=== PATIENT | male | born 1980 | race Hispanic/Latino ===

== ENCOUNTER → 2017-01-31 | Outpatient (CLI) | payer OTHER ==
[~2017-01-31] MED LIST: CEFD300C3 PO; HCT25T PO; HCTZ12.5T PO; HYDR-3454 PO; IBP600T1 PO; LISI1TAB10 PO; LISI20TA PO; LOVA20TA2 PO; LOVA40TA2 PO; LSNP20T PO; MMT17NA NSEACH; PRAV40TA2 PO
--- NOTE | 2017-01-31 14:07 | Diagnostic Imaging Report ---
INDICATION: Dyspnea upon exertion. PA and lateral views of the chest are obtained. Comparison is made to study of 09/13/2015. FINDINGS: Heart size and pulmonary vascularity are within normal limits, and the lungs are clear, bilaterally. IMPRESSION: Unremarkable chest. Dictated by: Dictated on workstation # [id number]
== END ==
LOC: RAD 13:43
PROVIDERS: ATTEND Nurse Practitioner
DX: R06.00 Dyspnea, unspecified (principal)
CPT/HCPCS: 36415; 71020; 85379

== ENCOUNTER 2018-02-26 15:07 | Outpatient (RCR) | payer OTHER | END 2018-05-27 | disposition home or self-care (01) | LOC: DSME 15:07 | PROVIDERS: ATTEND Family Medicine | DX: E11.9 Type 2 diabetes mellitus without complications (principal); I10 Essential (primary) hypertension; E66.9 Obesity, unspecified ==

== ENCOUNTER 2018-06-01 16:45 | Emergency (ER) | payer OTHER ==
[~2018-06-01] VITALS: Ht 170.2 cm; Wt 113.9 kg
[2018-06-01] MEDS ORDERED: METF500T8 (17:46)
[2018-06-01] MEDS ORDERED: ATOR40TA70 (17:46)
[2018-06-01] MEDS ORDERED: KETOROLAC 60 MG/2 ML VIAL IM ONE (18:00)
[2018-06-01] MEDS ORDERED: ORPHENADRINE 60 MG/2 ML (NORFLEX) AMP IM ONE (18:00)
--- OUTSIDE RECORDS SUMMARY | 2018-06-01 18:03 | XMS REPORT | Continuity of Care Document ---
Author Author [facility] Organization [facility] Address Unknown Phone Unavailable Care Team Providers Care Job Press Operator Name Role Phone JOSE LOERA DO PCP Insurance Providers Payer Name Policy Number Subscriber Name Relationship Unknown Advance Directives Directive Response Recorded Date/Time Advance Directives No 08/30/14 10:32pm Resuscitation Status Full Code 08/30/14 10:32pm Problems Medical Problems Problem Onset Date Status Hyperglycemia Unknown Active Near syncope Unknown Active Medications Medication Dose Route Sig Days/Qty Instructions Order Date Discontinued Date Status Lovastatin (Mevacor) 1 Each PO DAILY WITH SUPPER 08/30/14 Active Lisinopril 20 Mg PO DAILY 08/30/14 Active Hydrochlorothiazide 25 Mg PO DAILY 08/30/14 Active Social History Social History Problem Response Recorded Date/Time Alcohol Use Occasionally Uses 08/30/2014 10:32pm Recreational Drug Use No 08/30/2014 10:32pm Recent Foreign Travel No 08/30/2014 10:32pm Recent Infectious Disease Exposure No 08/30/2014 10:32pm Hospitalization with Isolation Denies 08/30/2014 10:32pm Sexually Transmitted Disease No 08/30/2014 10:32pm Smoking Status Never a Smoker 08/30/2014 10:32pm Query Response Start Date Stop Date Smoking Status Never a Smoker Hospital Discharge Instructions No hospital discharge instructions. Plan of Care No plan of care. Functional Status Query Response Date Recorded Patient Orientation Person Place Time Situation August 30, 2014 10:34pm Comprehension Ability Understands Concepts August 30, 2014 10:34pm Allergies, Adverse Reactions, Alerts Allergen Type Severity Reaction Status Last Updated No Known Drug Allergies Active 08/30/14 Immunizations No immunization records. Vital Signs Acute Vital Signs Vital Response Date/Time Temperature (Fahrenheit) 98.0 degrees F (97.6 - 99.5) Temperature (Calculated Celsius) 36.60121 degrees C (36.4 - 37.5) Temperature Source Temporal Pulse Rate (adult) 117 bpm (60 - 90) Respiratory Rate 20 bpm (12 - 24) O2 Sat by Pulse Oximetry 92 % (88 - 100) Blood Pressure 114/70 mm Hg Pain Pain Intensity 0 Height (Feet) 5 feet Height (Inches) 7 inches Height (Calculated Centimeters) 170.253456 cm Weight (Pounds) 250 pounds Weight (Calculated Kilograms) 113.591737 kilograms Calculated BMI 39.15 Results No known relevant diagnostic tests, laboratory data and/or discharge summary. Procedures Procedure Status Date Provider(s) Tracing only of electrocardiogram completed 08/30/14 SVEN CHRISTIANSON MD Encounters Encounter Location Date/Time Departed Emergency Room [facility] 08/30/14 10:29pm Recent Diagnosis
--- OUTSIDE RECORDS SUMMARY | 2018-06-01 18:03 | XMS REPORT | Continuity of Care Document ---
Author Author [facility] Organization [facility] Address Unknown Phone Unavailable Allergies Active Description Code Type Severity Reaction Onset Reported/Identified Relationship to Patient Clinical Status Yes No Known Drug Allergies [id number] Drug Allergy Mild N/A 07/08/2009 Medications There is no data. Problems Date Dx Coded Attending Type Code Diagnosis Diagnosed By 04/07/2012 Ot 351.0 04/07/2012 Ot 782.0 06/18/2013 BRENDON FLORENTINO, SHARRON Nguyen Ot 785.6 05/06/2014 RO SAUCEDO DO Ot 723.1 05/06/2014 RO SAUCEDO DO Ot 780.4 05/06/2014 RO SAUCEDO DO Ot 790.29 08/30/2014 Ot 780.2 08/30/2014 Ot 780.79 08/30/2014 Ot 790.29 10/27/2014 CALLI CONLEY CUSTODIAL AIDE Ot 785.6 10/27/2014 BRENDON FLORENTINO, SHARRON P Ot 785.6 10/27/2014 BRENDON FLORENTINO, SHARRON P Ot V72.63 10/27/2014 BRENDON FLORENTINO, SHARRON P Ot V72.81 10/27/2014 BRENDON FLORENTINO, SHARRON P Ot V72.83 10/27/2014 BRENDON FLORENTINO, SHARRON P Ot V74.8 10/29/2014 CALLI CONLEY CUSTODIAL AIDE Ot 785.6 10/29/2014 BRENDON FLORENTINO, SHARRON P Ot 785.6 10/29/2014 BRENDON FLORENTINO, SHARRON P Ot V72.63 10/29/2014 BRENDON FLORENTINO, SHARRON P Ot V72.81 10/29/2014 BRENDON FLORENTINO, SHARRON P Ot V72.83 10/29/2014 BRENDON FLORENTINO, SHARRON P Ot V74.8 12/22/2014 CALLI CONLEY CUSTODIAL AIDE Ot 785.6 12/22/2014 BRENDON FLORENTINO, SHARRON P Ot 785.6 12/22/2014 BRENDON FLORENTINO, SHARRON P Ot V72.63 12/22/2014 OLIVAS MD, SHARRON P Ot V72.81 12/22/2014 BRENDON FLORENTINO, SHARRON P Ot V72.83 12/22/2014 BRENDON FLORENTINO, SHARRON P Ot V74.8 12/22/2014 CALLI CONLEY CUSTODIAL AIDE Ot 785.6 12/22/2014 BRENDON FLORENTINO, SHARRON P Ot 785.6 12/22/2014 BRENDON FLORENTINO, SHARRON P Ot V72.63 12/22/2014 BRENDON FLORENTINO, SHARRON P Ot V72.81 12/22/2014 BRENDON FLORENTINO, SHARRON P Ot V72.83 12/22/2014 BRENDON FLORENTINO, SHARRON P Ot V74.8 12/22/2014 CALLI CONLEY CUSTODIAL AIDE Ot 785.6 12/22/2014 BRENDON FLORENTINO, SHARRON P Ot 785.6 12/22/2014 BRENDON FLORENTINO, SHARRON P Ot V72.63 12/22/2014 BRENDON FLORENTINO, SHARRON P Ot V72.81 12/22/2014 BRENDON FLORENTINO, SHARRON P Ot V72.83 12/22/2014 BRENDON FLORENTINO, SHARRON P Ot V74.8 01/05/2015 JOSE SANDOVAL DO S Ot 789.03 01/07/2015 Ot 288.60 01/07/2015 Ot 789.03 04/20/2015 CALLI CONLEY CUSTODIAL AIDE Ot 785.6 04/20/2015 BRENDON FLORENTINO, SHARRON P Ot 785.6 04/20/2015 BRENDON FLORENTINO, SHARRON P Ot V72.63 04/20/2015 BRENDON FLORENTINO, SHARRON P Ot V72.81 04/20/2015 BRENDON FLORENTINO, SHARRON P Ot V72.83 04/20/2015 BRENDON FLORENTINO, SHARRON Nguyen Ot V74.8 09/13/2015 RO SAUCEDO DO Ot J01.00 ACUTE MAXILLARY SINUSITIS, UNSPECIFIED 09/13/2015 RO SAUCEDO DO Ot M54.2 CERVICALGIA 09/13/2015 RO SAUCEDO DO Ot R42 DIZZINESS AND GIDDINESS 09/13/2015 Ot 288.60 09/13/2015 Ot 789.03 09/13/2015 Ot 288.60 09/13/2015 Ot 789.03 03/15/2016 JOSE SANDOVAL DO S Ot E01.0 IODINE-DEFICIENCY RELATED DIFFUSE (ENDEM 04/02/2016 JOSE SANDOVAL DO S Ot E01.0 IODINE-DEFICIENCY RELATED DIFFUSE (ENDEM 01/31/2017 Ot 288.60 LEUKOCYTOSIS , UNSPECIFIED 01/31/2017 Ot 789.03 ABDOMINAL PAIN, RIGHT LOWER QUADRANT 01/31/2017 ORENDER DO, JOSE S Ot E01.0 IODINE-DEFICIENCY RELATED DIFFUSE (ENDEM 01/31/2017 CHANTELL MALDONADO CUSTODIAL AIDE Ot R06.00 DYSPNEA, UNSPECIFIED 02/01/2017 CHANTELL MALDONADO CUSTODIAL AIDE Ot R06.00 DYSPNEA, UNSPECIFIED 02/13/2017 CHANTELL MALDONADO CUSTODIAL AIDE Ot R06.00 DYSPNEA, UNSPECIFIED 04/22/2017 ORENDER DO, JOSE S Ot 789.03 ABDOMINAL PAIN, RIGHT LOWER QUADRANT 02/02/2018 ORENDER DO, JOSE S Ot 789.03 ABDOMINAL PAIN, RIGHT LOWER QUADRANT 02/20/2018 Ot 288.60 LEUKOCYTOSIS , UNSPECIFIED 02/20/2018 Ot 789.03 ABDOMINAL PAIN, RIGHT LOWER QUADRANT 02/20/2018 ORENDER DO, JOSE S Ot E01.0 IODINE-DEFICIENCY RELATED DIFFUSE (ENDEM 02/20/2018 CHANTELL MALDONADO CUSTODIAL AIDE Ot R06.00 DYSPNEA, UNSPECIFIED 02/26/2018 Ot 288.60 LEUKOCYTOSIS , UNSPECIFIED 02/26/2018 Ot 789.03 ABDOMINAL PAIN, RIGHT LOWER QUADRANT 02/26/2018 ORENDER DO, JOSE S Ot E01.0 IODINE-DEFICIENCY RELATED DIFFUSE (ENDEM 02/26/2018 CHANTELL MALDONADO CUSTODIAL AIDE Ot R06.00 DYSPNEA, UNSPECIFIED 05/27/2018 ORENDER DO, JOSE S Ot E11.9 TYPE 2 DIABETES MELLITUS WITHOUT COMPLIC 05/27/2018 ORENDER DO, JOSE S Ot E66.9 OBESITY, UNSPECIFIED 05/27/2018 ORENDER DO, JOSE S Ot I10 ESSENTIAL (PRIMARY) HYPERTENSION 05/28/2018 ORENDER DO, JOSE S Ot E11.9 TYPE 2 DIABETES MELLITUS WITHOUT COMPLIC 05/28/2018 ORENDER DO, JOSE S Ot E66.9 OBESITY, UNSPECIFIED 05/28/2018 ORENDER DO, JOSE S Ot I10 ESSENTIAL (PRIMARY) HYPERTENSION Procedures There is no data. Results Test Result Range Fibrin D-dimer FEU measurement in platelet poor plasma (mass/volume) - 14:10 Fibrin D-dimer FEU measurement in platelet poor plasma (mass/volume) < ug/mL 0.00-0.49 Encounters ACCT No. Visit Date/Time Discharge Status Pt. Type Provider Facility Loc./Unit Complaint [id number] 05/28/2018 15:00:00 05/28/2018 23:59:59 CLS Preadmit LUZ MARIA KAYE JOSE S [facility] TYPE 2 DIABETES [id number] 02/26/2018 15:07:00 05/27/2018 00:01:00 DIS Outpatient [facility] [id number] 01/31/2017 13:43:00 01/31/2017 23:59:59 CLS Outpatient CHANTELL MALDONADO APRN [facility] RAD DYSPNEA [id number] 03/14/2016 10:31:00 03/14/2016 23:59:59 CLS Outpatient LUZ MARIA KAYE JOSE S [facility] RAD THYROMEGALY [id number] 09/13/2015 16:41:00 09/13/2015 19:04:00 DIS Emergency SHERYL RO KAYE [facility] ER DIZZINESS,NECK PAIN [id number] 12/22/2014 16:24:00 12/22/2014 23:59:59 CLS Outpatient LUZ MARIA KAYE JOSE S [facility] LAB RUQ PAIN [id number] 05/06/2014 18:24:00 05/06/2014 21:37:00 DIS Emergency SHERYL RO KAYE [facility] ER [id number] 06/18/2013 07:03:00 06/18/2013 12:15:00 DIS Outpatient SHARRON OLIVAS MD [facility] [id number] 06/16/2013 13:10:00 06/16/2013 23:59:59 CLS Outpatient SHARRON OLIVAS MD [facility] PREOP [id number] 04/22/2013 13:43:00 04/22/2013 23:59:59 CLS Outpatient CALLI CONLEY APRN [facility] RAD [id number] 01/06/2015 14:57:00 Document Registration [id number] 10/27/2014 07:36:00 Document Registration [id number] 08/30/2014 22:29:00 Document Registration [id number] 04/07/2012 22:27:00 Document Registration 10/03/18 05/16/2018 23:48:12 05/16/2018 23:59:59 [facility] Outpatient Jose Sandoval [id number] 08/30/2014 22:29:00 08/30/2014 23:39:00 DIS Emergency
--- NOTE | 2018-06-01 18:40 | ED Back Pain ---
General Chief Complaint: Back Problems Stated Complaint: R SIDE ABD PAIN/NUMBNESS Nursing Triage Note: AMBULATED TO ROOM 09 WITHOUT DIFFICULTY. COMPLAINS OF LOWER RIGHT SIDED BACK PAIN THAT RAIDATES AROUND TO ABD AND DOWN HIS RIGHT LEG. STATES IT IS MAKING HIS WHOLE RIGHT SIDE FEEL NUMB. STARTED APPX 3 DAYS AGO. Nursing Sepsis Screen: No Definite Risk Source of Information: Patient Exam Limitations: No Limitations History of Present Illness Date Seen by Provider: Jun 01, 2018 Time Seen by Provider: 17:40 Initial Comments Patient is a 37-year-old male who presents to the emergency room with complaints of lower back pain with numbness that radiates to his right leg and right arm. He reports that started 3 days ago. He denies any saddle paresthesia , loss of bowel or bladder, urinary symptoms, headaches, fevers. Location: Lumbar Spine Severity: Mild Pain/Injury Location: Back Radiation: Upper Legs (right leg), Other (right arm) Method of Injury: Unknown Modifying Factors: Improves With Immobilization; Worse With Movement Associated Symptoms: muscle spasms, numbness in legs/feet (numbness to his right leg and right arm.); No loss of bladder control, No loss of bowel control Allergies and Home Medications Allergies Coded Allergies: No Known Drug Allergies (Unverified , 07/08/09) Home Medications Cyclobenzaprine HCl 10 Mg Tablet, 10 MG PO Q8H PRN for MUSCLE SPASMS Prescribed by: CRISSY JARRETT on 06/01/18 1847 Lisinopril/Hydrochlorothiazide 1 Each Tablet, 1 EACH PO DAILY, (Reported) Mometasone Furoate 17 Gm Naspr, 2 SPRAYS NSEACH BID Prescribed by: RO SAUCEDO on 09/13/15 1859 Pravastatin Sodium 40 Mg Tablet, 40 MG PO DAILY, (Reported) Patient Home Medication List Home Medication List Reviewed: Yes Constitutional: see HPI; No chills, No diaphoresis, No dizziness, No fever Musculoskeletal: see HPI, back pain; No joint swelling, No muscle pain, No muscle stiffness, No muscle cramps, No muscle twitching, No muscle weakness, No neck pain All Other Systems Reviewed Negative Unless Noted: Yes Past Viapaba-Glqwrz-Zdunfq Hx Past Med/Social Hx: Reviewed Nursing Past Med/Soc Hx Patient Social History Alcohol Use: Rarely Uses Recreational Drug Use: No Smoking Status: Never a Smoker Recent Foreign Travel: No Contact w/Someone Who Travel: No Recent Infectious Disease Expo: No Immunizations Up To Date Tetanus Booster (TDap): Unknown Past Medical History Surgeries: Yes (BIOPSY ON NECK LYMPH NODE) Respiratory: No Cardiac: Yes High Cholesterol, Hypertension Neurological: No Reproductive Disorders: No Sexually Transmitted Disease: No HIV/AIDS: No Gastrointestinal: No Musculoskeletal: No Endocrine: No Cancer: No Psychosocial: No Integumentary: No Blood Disorders: No Family Medical History Reviewed Nursing Family Hx Physical Exam Vital Signs Vital Signs - First Documented 06/01/18 17:34 Temp 98.0 Pulse 90 Resp 16 B/P (MAP) 141/84 (103) Pulse Ox 97 O2 Delivery Room Air Capillary Refill : Less Than 3 Seconds Height, Weight, BMI Height: 5'7.00" Weight: 251lbs. oz. 113.080573kq; BMI Method:Stated General Appearance: No Apparent Distress, WD/WN Back: Normal Inspection, No Vertebral Tenderness, Vertebral Tenderness (lumbar tenderness) Neurologic/Psychiatric: Alert, Oriented x3, Normal Mood/Affect Skin: Normal Color, Warm/Dry Progress/Results/Core Measures Results/Orders My Orders Orders - BERNOT,CRISSY Orphenadrine Injection (Norflex Injectio (06/01/18 18:00) Ketorolac Injection (Toradol Injection) (06/01/18 18:00) Medications Given in ED Vital Signs/I&O 06/01/18 06/01/18 17:34 18:52 Temp 98.0 Pulse 90 81 Resp 16 16 B/P (MAP) 141/84 (103) 126/84 Pulse Ox 97 98 O2 Delivery Room Air Room Air Blood Pressure Mean: 103 Progress Progress Note : Time: 18:43 Progress Note Patient reports that his pain and numbness has resolved at this time. He is pacing in the room without difficulty. He reports that he has an appointment with Dr. LOERA on 06/05/18 and he was instructed to keep this appointment for close follow-up. A prescription for a muscle relaxer cyclobenzaprine was given to him and instructed to use ibuprofen and Tylenol as directed by the bottle. Departure Impression Primary Impression: Back pain Disposition: 01 HOME, SELF-CARE Condition: Stable/Unchanged Departure-Patient Inst. Decision time for Depature: 18:45 Referrals: JOSE LOERA DO (PCP/Family) Primary Care Physician Patient Instructions: Low Back Pain (DC) Add. Discharge Instructions: Take medications as directed. You may use ibuprofen and Tylenol as directed by the bottle. Return back to the emergency room for any worsening symptoms or concerns as needed. Follow-up with Dr. LOERA as scheduled later this week. All discharge instructions reviewed with patient and/or family. Voiced understanding. Scripts Cyclobenzaprine HCl (Cyclobenzaprine HCl) 10 Mg Tablet 10 MG PO Q8H PRN for MUSCLE SPASMS, #14 TAB Prov: CRISSY JARRETT 06/01/18 CRISSY JARRETT Jun 01, 2018 18:40
[2018-06-01] MEDS ORDERED: CYCL10TA9 PO (18:47)
[2018-06-01 18:52] VITALS: BP 126/84
== END 2018-06-01 18:52 | disposition home or self-care (01) ==
LOC: EDUNIT# 16:45 → ER 16:46
DX: M54.5 Low back pain (principal); E78.00 Pure hypercholesterolemia, unspecified; I10 Essential (primary) hypertension
CPT/HCPCS: 96372; 99284

== ENCOUNTER 2018-10-13 10:00 | Outpatient (CLI) | payer OTHER ==
[~2018-10-13] VITALS: Ht 170.2 cm; Wt 110.7 kg
[~2018-10-13 10:00] MED LIST changes: +ATOR40TA70 PO; +CYCL10TA9 PO; +METF500T8 PO
== END 2018-10-13 10:34 | disposition home or self-care (01) ==
LOC: PREOP 10:00
PROVIDERS: ATTEND Surgery
DX: Z01.818 Encounter for other preprocedural examination (principal)

== ENCOUNTER 2018-10-16 07:06 | Day surgery (SDC) | payer OTHER ==
[~2018-10-16] VITALS: Ht 170.2 cm; Wt 110.7 kg
[2018-10-16] MEDS ORDERED: NS IV 500 ML 500 ML ONE (07:16)
[2018-10-16 07:20] VITALS: BP 126/75
[2018-10-16] MEDS ORDERED: NS IV 500 ML 500 ML IV PRN (07:27)
[2018-10-16] MEDS ORDERED: MIDAZOLAM 2 MG/2 ML (VERSED) VIAL IVP ONE (07:30)
[2018-10-16] MEDS ORDERED: fentaNYL INJECTION 100 MCG/2 ML AMP IVP ONE (07:30)
[2018-10-16] MEDS ORDERED: MIDAZOLAM 2 MG/2 ML (VERSED) VIAL ONE ×4 (07:32→07:33)
[2018-10-16] MEDS ORDERED: fentaNYL INJECTION 100 MCG/2 ML AMP ONE (07:32)
--- NOTE | 2018-10-16 07:40 | History & Physicial ---
History of Present Illness History of Present Illness Reason for visit/HPI to undergo colonoscopy regarding rectal bleeding. Date of Admission 10/16/18 Date Seen by a Provider: Oct 16, 2018 Time Seen by a Provider: 07:37 I consulted on this patient on 10/16/18 07:37 Attending Physician Todd Stahl MD Admitting Physician Ofelia Sandoval DO Consult Allergies and Home Medications Allergies Coded Allergies: No Known Drug Allergies (Unverified , 07/08/09) Home Medications Atorvastatin Calcium 40 Mg Tablet, 40 MG PO HS, (Reported) Lisinopril/Hydrochlorothiazide 1 Each Tablet, 1 EACH PO DAILY, (Reported) Metformin HCl 500 Mg Tab.er.24h, 500 MG PO DAILY, (Reported) Patient Home Medication List Home Medication List Reviewed: Yes Past Sdqdfgk-Pkffks-Jyweeh Hx Patient Social History Marrital Status: Employed/Student: retired Recent Foreign Travel: No Contact w/other who traveled: No Recent Hopitalizations: No Immunizations Up To Date Tetanus Booster (TDap): Unknown Seasonal Allergies Seasonal Allergies: Yes Surgeries Yes (BIOPSY ON NECK LYMPH NODE) Respiratory No Cardiovascular Yes High Cholesterol, Hypertension Neurological No Reproductive System Hx Reproductive Disorders: No Sexually Transmitted Disease: No HIV/AIDS: No Gastrointestinal No Musculoskeletal No Endocrine History of Endocrine Disorders: No Cancer No Psychosocial History of Psychiatric Problem: No Integumentary History of Skin or Integumenta: No Blood Transfusions History of Blood Disorders: No Review of Systems Constitutional: no symptoms reported EENTM: no symptoms reported Respiratory: no symptoms reported Cardiovascular: no symptoms reported Gastrointestinal: no symptoms reported, see HPI Genitourinary: no symptoms reported Musculoskeletal: no symptoms reported Skin: no symptoms reported Psychiatric/Neurological: No Symptoms Reported Physical Exam Vital Signs Capillary Refill : Height, Weight, BMI Height: 5'7.00" Weight: 244lbs. 0.0oz. 110.205794jv; 38.2 BMI Method:Stated General Appearance: No Apparent Distress Neck: Normal Inspection Respiratory: Lungs Clear Cardiovascular: Regular Rate, Rhythm Gastrointestinal: Non Tender, Soft Rectal: Deferred Neurologic/Psychiatric: Alert, Oriented x3 Skin: Warm/Dry Assessment/Plan Assessment and Plan gentleman rectal bleeding. Hemorrhoids versus polyps. For colonoscopy. Admission Diagnosis Admission Status: Other (Outpt Proc) TODD STAHL MD Oct 16, 2018 07:40
--- NOTE | 2018-10-16 07:41 | Conscious Sedation/ASA ---
Conscious Sedation Pre-Proced Time 07:41 ASA Score 2 For ASA 3 and 4: Consider anesthesia and medical clearance. Also, for patients with a history of failed moderate sedation consider anesthesia. Airway Lungs Heart ASA score ASA 1: a normal healthy patient ASA 2: a patient with a mild systemic disease (mid diabetes, controlled hypertension, obesity ASA 3: a patient with a severe systemic disease that limits activity (angina , COPD, prior Myocardial infarction) ASA 4: a patient with an incapacitating disease that is a constant threat to life (CHF, renal failure) ASA 5: a moribund patient not expected to survive 24 hrs. (ruptured aneurysm) ASA 6: a declared brain patient whose organs are being harvested. For emergent operations, add the letter E after the classification Mallampati Classification Grade 1 Sedation Plan Discussed options with patient/fam The patient is an appropriate candidate to undergo the planned procedure, sedation, and anesthesia. The patient immediately re-assessed prior to indication. TODD PÉREZ MD Oct 16, 2018 07:41
--- NOTE | 2018-10-16 08:04 | Endo Procedure Record ---
Endo Procedure Report Date of Procedure Last Colonoscopy: No Oct 16, 2018 Surgeon (s) TODD PÉREZ MD Post Procedure/Op Diagnosis 2 mm AVM 2 along the descending colon. 1 mm AVM at the proximal transverse colon. Procedure Performed colonoscopy to cecum Description of Procedure Anesthesia Type: Conscious Sedation Specimen(s) collected/removed None Description of the Procedure Indication for the procedure: This gentleman came in for colonoscopy to evaluate 1 episode of rectal bleeding. He denied any family history of colon cancer or polyps. Informed consent was obtained after reviewing the procedure in detail. Description of the procedure: He was placed in left lateral decubitus position and his vital signs were monitored. Conscious sedation was achieved using Versed and fentanyl. Digital rectal examination was unremarkable. The colonoscope was then introduced into the rectum and advanced all the left to cecum The quality of bowel preparation was excellent. The scope was then withdrawn slowly and the mucosa examined in a systematic fashion. Findings: 1. Two AV malformations, 2 mm each, adjacent to each other along the descending colon. 2. An 1mm AVM at the proximal transverse colon. There was no active bleeding. She tolerated the procedure well and was taken back to the nursing area in a stable condition. Impression: 1 episode of rectal bleeding. Possibly due to AV malformations. Currently symptomatic and therefore it is reasonable to observe. Should bleeding recur, argon beam photocoagulation would be arranged Copy Copies To 1: JOSE LOERA XAVIER M MD Oct 16, 2018 08:04
--- NOTE | 2018-10-16 08:07 | Discharge Inst-Simple/Standard ---
Discharge Inst-Standard Discharge Medications New, Converted or Re-Newed RX: Other Patient Instructions/Follow Up Plan of Care/Instructions/FU: to call my office if he has further bleeding Activity as Tolerated: Yes Discharge Diet: No Restrictions TODD PÉREZ MD Oct 16, 2018 08:07
[2018-10-16 08:25] VITALS: BP 105/62
[2018-10-16 08:55] VITALS: BP 110/66
[2018-10-16 09:05] VITALS: BP 110/66
--- OUTSIDE RECORDS SUMMARY | 2018-10-16 12:42 | XMS REPORT | Continuity of Care Document ---
Author Author [facility] Organization [facility] Address Unknown Phone Unavailable Allergies Active Description Code Type Severity Reaction Onset Reported/Identified Relationship to Patient Clinical Status Yes No Known Drug Allergies [id number] Drug Allergy Mild N/A 07/08/2009 Medications There is no data. Problems Date Dx Coded Attending Type Code Diagnosis Diagnosed By 04/07/2012 Ot 351.0 04/07/2012 Ot 782.0 06/18/2013 BRENDON FLORENTINO, SHARRON Nguyen Ot 785.6 05/06/2014 RO SAUCEDO DO Ot 723.1 05/06/2014 RO SAUCEDO DO Ot 780.4 05/06/2014 RO SAUCEDO DO Ot 790.29 08/30/2014 Ot 780.2 08/30/2014 Ot 780.79 08/30/2014 Ot 790.29 10/27/2014 CALLI CONLEY SNOW REMOVAL/PLOWING Ot 785.6 10/27/2014 BRENDON FLORENTINO, SHARRON P Ot 785.6 10/27/2014 BRENDON FLORENTINO, SHARRON P Ot V72.63 10/27/2014 BRENDON FLORENTINO, SHARRON P Ot V72.81 10/27/2014 BRENDON FLORENTINO, SHARRON P Ot V72.83 10/27/2014 BRENDON FLORENTINO, SHARRON P Ot V74.8 10/29/2014 CALLI CONLEY SNOW REMOVAL/PLOWING Ot 785.6 10/29/2014 BRENDON FLORENTINO, SHARRON P Ot 785.6 10/29/2014 BRENDON FLORENTINO, SHARRON P Ot V72.63 10/29/2014 BRENDON FLORENTINO, SHARRON P Ot V72.81 10/29/2014 BRENDON FLORENTINO, SHARRON P Ot V72.83 10/29/2014 BRENDON FLORENTINO, SHARRON P Ot V74.8 12/22/2014 CALLI CONLEY SNOW REMOVAL/PLOWING Ot 785.6 12/22/2014 BRENDON FLORENTINO, SHARRON P Ot 785.6 12/22/2014 BRENDON FLORENTINO, SHARRON P Ot V72.63 12/22/2014 OLIVAS MD, SHARRON P Ot V72.81 12/22/2014 BRENDON FLORENTINO, SHARRON P Ot V72.83 12/22/2014 BRENDON FLORENTINO, SHARRON P Ot V74.8 12/22/2014 CALLI CONLEY SNOW REMOVAL/PLOWING Ot 785.6 12/22/2014 BRENDON FLORENTINO, SHARRON P Ot 785.6 12/22/2014 BRENDON FLORENTINO, SHARRON P Ot V72.63 12/22/2014 BRENDON FLORENTINO, SHARRON P Ot V72.81 12/22/2014 BRENDON FLORENTINO, SHARRON P Ot V72.83 12/22/2014 BRENDON FLORENTINO, SHARRON P Ot V74.8 12/22/2014 CALLI CONLEY SNOW REMOVAL/PLOWING Ot 785.6 12/22/2014 BRNEDON FLORENTINO, SHARRON P Ot 785.6 12/22/2014 BRENDON FLORENTINO, SHARRON P Ot V72.63 12/22/2014 BRENDON FLORENTINO, SHARRON P Ot V72.81 12/22/2014 BRENDON FLORENTINO, SHARRON P Ot V72.83 12/22/2014 BRENDON FLORENTINO, SHARRON P Ot V74.8 01/05/2015 JOSE SANDOVAL DO S Ot 789.03 01/07/2015 Ot 288.60 01/07/2015 Ot 789.03 04/20/2015 CALLI CONLEY SNOW REMOVAL/PLOWING Ot 785.6 04/20/2015 BRENDON FLORENTINO, SHARRON P [...] IODINE-DEFICIENCY RELATED DIFFUSE (ENDEM 01/31/2017 CHANTELL MALDONADO SNOW REMOVAL/PLOWING Ot R06.00 DYSPNEA, UNSPECIFIED 02/01/2017 CHANTELL MALDONADO SNOW REMOVAL/PLOWING Ot R06.00 DYSPNEA, UNSPECIFIED 02/13/2017 CHANTELL MALDONADO SNOW REMOVAL/PLOWING Ot R06.00 DYSPNEA, UNSPECIFIED 04/22/2017 ORENDER DO, JOSE S Ot 789.03 ABDOMINAL PAIN, RIGHT LOWER QUADRANT 02/02/2018 ORENDER DO, JOSE S Ot 789.03 ABDOMINAL PAIN, RIGHT LOWER QUADRANT 02/20/2018 Ot 288.60 LEUKOCYTOSIS , UNSPECIFIED 02/20/2018 Ot 789.03 ABDOMINAL PAIN, RIGHT LOWER QUADRANT 02/20/2018 ORENDER DO, JOSE S Ot E01.0 IODINE-DEFICIENCY RELATED DIFFUSE (ENDEM 02/20/2018 CHANTELL MALDONADO SNOW REMOVAL/PLOWING Ot R06.00 DYSPNEA, UNSPECIFIED 02/26/2018 Ot 288.60 LEUKOCYTOSIS , UNSPECIFIED 02/26/2018 Ot 789.03 ABDOMINAL PAIN, RIGHT LOWER QUADRANT 02/26/2018 ORENDER DO, JOSE S Ot E01.0 IODINE-DEFICIENCY RELATED DIFFUSE (ENDEM 02/26/2018 CHANTELL MALDONADO SNOW REMOVAL/PLOWING Ot R06.00 DYSPNEA, UNSPECIFIED 05/27/2018 ORENDER DO, [...] JOSE S Ot I10 ESSENTIAL (PRIMARY) HYPERTENSION 06/01/2018 CRISSY JARRETT Ot E78.00 PURE HYPERCHOLESTEROLEMIA, UNSPECIFIED 06/01/2018 CRISSY JARRETT Ot I10 ESSENTIAL (PRIMARY) HYPERTENSION 06/01/2018 CRISSY JARRETT Ot M54.5 LOW BACK PAIN 06/03/2018 CRISSY JARRETT Ot E78.00 PURE HYPERCHOLESTEROLEMIA, UNSPECIFIED 06/03/2018 CRISSY JARRETT Ot I10 ESSENTIAL (PRIMARY) HYPERTENSION 06/03/2018 CRISSY JARRETT Ot M54.5 LOW BACK PAIN 10/13/2018 BETO FLORENTINO, TODD Mathew Ot Z01.818 ENCOUNTER FOR OTHER PREPROCEDURAL EXAMIN 10/13/2018 TODD PÉREZ MD Ot Z01.818 ENCOUNTER FOR OTHER PREPROCEDURAL EXAMIN 10/13/2018 TODD PÉREZ MD Ot Z01.818 ENCOUNTER FOR OTHER PREPROCEDURAL EXAMIN Procedures There is no data. Results Test Result Range Fibrin D-dimer FEU measurement in platelet poor plasma (mass/volume) - 14:10 Fibrin D-dimer FEU measurement in platelet poor plasma (mass/volume) < ug/mL 0.00-0.49 Encounters ACCT No. Visit Date/Time Discharge Status Pt. Type Provider Facility Loc./Unit Complaint [id number] 10/13/2018 10:00:00 10/13/2018 10:34:00 DIS Outpatient TODD PÉREZ MD [facility] PREOP COLONOSCOPY [id number] 06/01/2018 16:46:00 06/01/2018 18:52:00 DIS Emergency CRISSY JARRETT [facility] ER R SIDE ABD PAIN/NUMBNESS [id number] 05/28/2018 15:00:00 05/28/2018 23:59:59 CLS Preadmit JOSE SANDOVAL DO [facility] DSME TYPE 2 DIABETES [id number] 02/26/2018 15:07:00 05/27/2018 00:01:00 DIS Outpatient JOSE SANDOVAL DO [facility] DSME TYPE 2 DIABETES [id number] 01/31/2017 13:43:00 01/31/2017 23:59:59 CLS Outpatient CHANTELL MALDONADO APRN [facility] RAD DYSPNEA [id number] 03/14/2016 10:31:00 03/14/2016 23:59:59 CLS Outpatient JOSE SANDOVAL DO [facility] RAD THYROMEGALY [id number] 09/13/2015 16:41:00 09/13/2015 19:04:00 DIS Emergency RO SAUCEDO DO [facility] ER DIZZINESS,NECK PAIN [id number] 12/22/2014 16:24:00 12/22/2014 23:59:59 CLS Outpatient JOSE SANDOVAL DO [facility] LAB RUQ PAIN [id number] 05/06/2014 18:24:00 05/06/2014 21:37:00 DIS Emergency RO SAUCEDO DO [facility] ER [id number] 06/18/2013 07:03:00 06/18/2013 12:15:00 DIS Outpatient SHARRON OLIVAS MD [facility] SDC [id number] 06/16/2013 13:10:00 06/16/2013 23:59:59 CLS Outpatient SHARRON OLIVAS MD [facility] PREOP [id number] 04/22/2013 13:43:00 04/22/2013 23:59:59 CLS Outpatient CALLI CONLEY APRN [facility] RAD [id number] 10/16/2018 07:06:00 ACT Outpatient TODD PÉREZ MD [facility] ENDO HEMATOCHEZIA [id number] 01/06/2015 14:57:00 Document Registration [id number] 10/27/2014 07:36:00 Document Registration [id number] 08/30/2014 22:29:00 Document Registration [id number] 04/07/2012 22:27:00 Document Registration 10/03/18 10/04/2018 23:49:13 10/04/2018 23:59:59 CLS Outpatient Jose Sandoval. [id number] 08/30/2014 22:29:00 08/30/2014 23:39:00 DIS Emergency
== END 2018-10-16 09:05 | disposition home or self-care (01) ==
LOC: ENDO 07:06
PROVIDERS: ATTEND Surgery
DX: K55.21 Angiodysplasia of colon with hemorrhage (principal); K62.5 Hemorrhage of anus and rectum; E78.00 Pure hypercholesterolemia, unspecified; I10 Essential (primary) hypertension; Z79.899 Other long term (current) drug therapy

== ENCOUNTER → 2019-06-16 | Outpatient (CLI) | payer OTHER ==
--- NOTE | 2019-06-16 15:37 | Diagnostic Imaging Report ---
PATIENT HISTORY: Abdominal pain. EXAMINATION: Upright and supine frontal views of the abdomen. COMPARISON: None. FINDINGS: There is moderate stool in the ascending colon. The descending colon appears decompressed. No distended loops of small bowel are seen. There is no large collection of free air. IMPRESSION: Moderate stool in the ascending colon with no bowel obstruction seen. Dictated by: Dictated on workstation # [id number]
== END ==
LOC: RAD 14:57
PROVIDERS: ATTEND Nurse Practitioner Family
DX: R10.9 Unspecified abdominal pain (principal)
CPT/HCPCS: 74019

== ENCOUNTER → 2019-07-06 | Outpatient (CLI) | payer OTHER ==
[~2019-07-06] MED LIST changes: +CATHETER FLUSH 10 ML SYR IV PRN; +HOLD METFORMIN - RECEIVED CONTRAST 20 ML VIAL IV SCH; +IOHEXOL 350 MG/ML 100 ML (OMNIPAQUE 350) VIAL IV ONE; +NS 100 ML (IVPB) BAG IV ONE
--- NOTE | 2019-07-06 12:44 | Diagnostic Imaging Report ---
CLINICAL INDICATION: Patient with dysphasia. COMPARISONS: Ultrasound of the thyroid gland dated 03/14/2016. FINDINGS: THYROID NODULES: None. THYROID GLAND: The thyroid gland has normal size, shape and echogenicity. The right lobe measures 5.2 cm x 1.8 cm x 2.1 cm and the left lobe measures 4.5 cm x 1.8 cm x 1.8 cm in their three dimensions. ISTHMUS: The isthmus shows no nodules and measures 6 mm in thickness. IMPRESSION: Unremarkable thyroid ultrasound exam. Dictated by: Dictated on workstation # [id number]
[2019-07-06 13:41] LABS: BUN/CREATININE RATIO 10; CREATININE SERUM 0.96 MG/DL (0.60-1.30); GFR ESTIMATED > 60
--- NOTE | 2019-07-06 14:50 | Diagnostic Imaging Report ---
PROCEDURE: CT abdomen and pelvis with contrast. TECHNIQUE: Multiple contiguous axial images were obtained through the abdomen and pelvis after administration of intravenous contrast. Auto Exposure Controls were utilized during the CT exam to meet ALARA standards for radiation dose reduction. DATE: July 06, 2019. COMPARISON: Abdominal radiographs June 16, 2019. CT abdomen and pelvis January 06, 2015. INDICATION: 38-year-old male, left-sided abdominal pain and swelling for one month. FINDINGS: The visualized portions of the lung bases are clear. The heart is not enlarged. The liver is normal in size and contour. There is no identified liver lesion. The main, right, and left portal veins are patent. The gallbladder is unremarkable. There is no intrahepatic or extrahepatic bile duct dilation. The main pancreatic duct is not abnormally dilated. Unremarkable appearance of the pancreatic parenchyma. The spleen is not enlarged. The adrenal glands are unremarkable. Unremarkable appearance of the renal parenchyma. Urinary collecting systems are not distended. There is no identified renal or ureteral stone. The urinary bladder is unremarkable in appearance. The appendix is normal and well seen on axial image 60 and adjacent sequential images. There is no free intraperitoneal air. No drainable fluid collection. There is no free pelvic fluid. There is no identified abnormally enlarged lymph node in the abdomen or pelvis which meets CT size criteria for adenopathy. There are disc degenerative changes at L5-S1. There is no identified acute bony abnormality. IMPRESSION: CT ABDOMEN AND PELVIS. 1. No identified acute abnormality in the abdomen or pelvis. Dictated by: Dictated on workstation # [id number]
== END ==
LOC: RAD 11:39
PROVIDERS: ATTEND Nurse Practitioner Family
DX: R10.9 Unspecified abdominal pain (principal); R19.00 Intra-abdominal and pelvic swelling, mass and lump, unspecified site; R13.10 Dysphagia, unspecified
CPT/HCPCS: 36415; 74177; 76536; 82565; 84520

== ENCOUNTER 2019-07-09 09:11 | Outpatient (CLI) | payer OTHER ==
[~2019-07-09] VITALS: Ht 170.2 cm; Wt 110.7 kg
[~2019-07-09 09:11] MED LIST changes: -CATHETER FLUSH 10 ML SYR IV PRN; -HOLD METFORMIN - RECEIVED CONTRAST 20 ML VIAL IV SCH; -IOHEXOL 350 MG/ML 100 ML (OMNIPAQUE 350) VIAL IV ONE; -NS 100 ML (IVPB) BAG IV ONE
[2019-07-10] MEDS ORDERED: PANT40TA2 PO (13:10)
== END 2019-07-09 09:29 | disposition home or self-care (01) ==
LOC: PREOP 09:11
PROVIDERS: ATTEND Surgery
DX: Z01.818 Encounter for other preprocedural examination (principal)

== ENCOUNTER 2019-07-10 11:23 | Day surgery (SDC) | payer OTHER ==
[2019-07-10] VITALS (15 sets, daily range): BP systolic 88–123; BP diastolic 46–77
[~2019-07-10] VITALS: Ht 170.2 cm; Wt 110.7 kg
[2019-07-10] MEDS ORDERED: NS IV 500 ML 500 ML ONE (11:31)
[2019-07-10] MEDS ORDERED: NS IV 500 ML 500 ML IV PRN (11:32)
[2019-07-10] MEDS ORDERED: MIDAZOLAM 2 MG/2 ML (VERSED) VIAL IVP ONE (11:45)
[2019-07-10] MEDS ORDERED: HURRICAINE EXT TUBE (BENZOCAINE) XX PRN (11:45)
[2019-07-10] MEDS ORDERED: LIDOCAINE JELLY 2% 6 ML SYRINGE MM PRN (11:45)
[2019-07-10] MEDS ORDERED: fentaNYL INJECTION 100 MCG/2 ML AMP IVP ONE (11:45)
[2019-07-10] MEDS ORDERED: HURRICAINE EXT TUBE (BENZOCAINE) ONE (12:08)
[2019-07-10] MEDS ORDERED: LIDOCAINE JELLY 2% 6 ML SYRINGE ONE (12:08)
[2019-07-10] MEDS ORDERED: MIDAZOLAM 2 MG/2 ML (VERSED) VIAL ONE ×4 (12:09)
[2019-07-10] MEDS ORDERED: fentaNYL INJECTION 100 MCG/2 ML AMP ONE (12:21)
--- NOTE | 2019-07-10 13:04 | Conscious Sedation/ASA ---
Conscious Sedation Pre-Proced Time 12:00 ASA Score 2 For ASA 3 and 4: Consider anesthesia and medical clearance. Also, for patients with a history of failed moderate sedation consider anesthesia. Airway Lungs Heart ASA score ASA 1: a normal healthy patient ASA 2: a patient with a mild systemic disease (mid diabetes, controlled hypertension, obesity ASA 3: a patient with a severe systemic disease that limits activity (angina, COPD, prior Myocardial infarction) ASA 4: a patient with an incapacitating disease that is a constant threat to life (CHF, renal failure) ASA 5: a moribund patient not expected to survive 24 hrs. (ruptured aneurysm) ASA 6: a declared brain- patient whose organs are being harvested. For emergent operations, add the letter E after the classification Mallampati Classification Grade 2 Sedation Plan Analgesia, Amnesia, Plan communicated to team members, Discussed options with patient/fam, Discussed risks with patient/fam The patient is an appropriate candidate to undergo the planned procedure, sedation, and anesthesia. The patient immediately re-assessed prior to indication. SHELL JORDAN MD Jul 10, 2019 13:04
--- NOTE | 2019-07-10 13:05 | Progress Note-Pre Operative ---
Pre-Operative Progress Note H&P Reviewed The H&P was reviewed, patient examined and no changes noted. Date Seen by Provider: Jul 10, 2019 Time Seen by Provider: 12:00 Date H&P Reviewed: Jul 10, 2019 Time H&P Reviewed: 12:00 Pre-Operative Diagnosis: LUQ abd pain, GERD SHELL JORDAN MD Jul 10, 2019 13:05
--- NOTE | 2019-07-10 13:06 | Progress Note-Post Operative ---
Post-Operative Progess Note Surgeon (s)/Pilot Instructor (s) Surgeon SHELL JORDAN MD Pilot Instructor: none Pre-Operative Diagnosis LUQ abd pain, GERD Post-Operative Diagnosis reflux esophagitis(stage 2), no HH, moderate gastritis and duodenitis. Procedure & Operative Findings Date of Procedure 07/10/19 Procedure Performed/Findings EGD with bx. Anesthesia Type cs Estimated Blood Loss Estimated blood loss (mL): minimal Specimens/Packing Specimens Removed ge jxn, antrum SHELL JORDAN MD Jul 10, 2019 13:06
[2019-07-10] MEDS ORDERED: PANT40TA2 PO (13:10)
--- NOTE | 2019-07-10 13:11 | Discharge Inst-Surgical ---
D/C Lap Instructions-JULIAN Follow Up Appt in 2 weeks Activity as tolerated High Fiber Diet 25g or more per day Avoid Alcohol, Caffeine, Spicy Twodot and Acid foods. Drink 64 fluid oz or more of fluids per day. Symptoms to Report: Fever over 101 degree F, Nausea/Vomiting If any problems/questions: Contact your physician or go to Emergency Room SHELL JORDAN MD Jul 10, 2019 13:11
[2019-07-10] MEDS ORDERED: ONDANSETRON 4 MG/2 ML (SDV) Z0FRAN IVP PRN (13:15)
[2019-07-10] MEDS ORDERED: morphine INJ 10 MG/ML 1ML (SYR OR VIAL) IVP PRN ×2 (13:15)
[2019-07-10] MEDS ORDERED: ACETAMINOPHEN 325 MG TABLET PO PRN (13:15)
[2019-07-10] MEDS ORDERED: HYDROcodone/APAP 5 MG/325 MG (LORTAB) TAB PO PRN (13:15)
--- NOTE | 2019-07-10 17:21 | OPERATIVE REPORT ---
DATE OF SERVICE: 07/10/2019 ATTENDING PRIMARY CARE PHYSICIAN: Dr. Sandoval. PREOPERATIVE DIAGNOSES: Gastroesophageal reflux disease, left upper quadrant abdominal pain, upper abdominal bloating. POSTOPERATIVE DIAGNOSES: Reflux esophagitis stage II, no significant hiatal hernia, moderate severity gastritis, mild duodenitis. PROCEDURE: EGD with biopsy. SURGEON: Shell Jordan MD ANESTHESIA: Conscious sedation. ESTIMATED BLOOD LOSS: Minimal. FINDINGS: Reflux esophagitis stage II, no significant hiatal hernia, moderate severity gastritis, mild duodenitis. DISPOSITION: The patient tolerated the procedure well. INDICATIONS: The patient is a 38-year-old male with 1-month history of left upper quadrant abdominal pain. He was seen by his primary care physician and was placed on a 2-week course of antibiotics; however, he has had persistent discomfort. He does report that he has had issues with epigastric burning sensation as well as what sounds to be regurgitation. He also reports that in recent months after he eats a meal, he has early satiety as well as abdominal bloating in the upper portion of the gastrointestinal tract. DESCRIPTION OF PROCEDURE: The patient was brought to the endoscopy suite, laid in left lateral decubitus position. After adequate IV pain and sedative medications and conscious sedation anesthesia, the mouthpiece was applied. The endoscope was then placed in the mouth, visualizing the pharynx and hypopharyngeal region. Vocal cords, epiglottis and vallecula identified and appeared to be normal. The endoscope was then gently intubated into the esophageal opening and esophagus insufflated. The endoscope was then advanced to the first, second and third portion of the esophagus at the level of the GE junction, a reflux esophagitis stage II identified. There were no ulcers or strictures identified in this region. A biopsy was taken of the GE junction with forceps with visualization of good hemostasis. The endoscope was then advanced into the stomach and endoscope retroflexed. There was no significant hiatal hernia identified. There was moderate severity gastritis, which was more diffuse in nature. No formal ulcerations, polyps, or any neoplasms. A biopsy was taken of the antrum to rule out H. pylori with visualization of good hemostasis. The endoscope was then advanced to the pylorus and the first and second portion of the duodenum, where a mild duodenitis identified. No formal ulcerations. The endoscope was then slowly withdrawn while taking a second look and suctioning of residual air with no additional findings. The patient tolerated the procedure well. His symptomatology and findings may be related to generalized acid hypersecretion; however, there is also the possibility of H. pylori infection and we will await the biopsy results. We will recommend the necessary lifestyle and diet accommodation including small and more frequent meals, avoidance of eating at night as well as head elevation while lying supine. He also needs to avoid caffeinated beverages, spicy, greasy, and acidic foods. We will also proceed with starting him on Protonix 40 mg daily. Job ID: [id number] DocumentID: [id number] Dictated Date: 07/10/2019 12:58:41 Solar Manager Date: 07/10/2019 17:20:35 Dictated By: SHELL JORDAN MD
== END 2019-07-10 13:45 | disposition home or self-care (01) ==
LOC: ENDO 11:23
PROVIDERS: ATTEND Surgery
DX: K29.50 Unspecified chronic gastritis without bleeding (principal); K21.0 Gastro-esophageal reflux disease with esophagitis; I10 Essential (primary) hypertension; K29.80 Duodenitis without bleeding; E78.00 Pure hypercholesterolemia, unspecified; E11.9 Type 2 diabetes mellitus without complications; Z82.49 Family history of ischemic heart disease and other diseases of the circulatory system; Z79.84 Long term (current) use of oral hypoglycemic drugs; Z83.3 Family history of diabetes mellitus; Z82.3 Family history of stroke
CPT/HCPCS: 82962

== ENCOUNTER → 2019-10-21 | Outpatient (CLI) | payer OTHER ==
[~2019-10-21] MED LIST changes: +PANT40TA2 PO
--- NOTE | 2019-10-21 14:05 | Diagnostic Imaging Report ---
INDICATION: Chest pain. COMPARISON: 01/31/2017. FINDINGS: Frontal and lateral views of the chest demonstrate normal heart size and pulmonary vascularity. The lungs are clear. There are no signs of infiltrate, pleural effusions or pneumothoraces. The visualized osseous structures show no acute abnormalities. IMPRESSION: 1. No acute process. No signs of infiltrates, effusions or pneumothoraces. Dictated by: Dictated on workstation # [id number]
== END ==
LOC: RAD 13:37
PROVIDERS: ATTEND Family Medicine
DX: R07.9 Chest pain, unspecified (principal)
CPT/HCPCS: 71046

== ENCOUNTER → 2019-10-26 | Outpatient (CLI) | payer OTHER | LOC: CARD 10:55 | PROVIDERS: ATTEND Family Medicine | DX: R07.9 Chest pain, unspecified (principal) | CPT/HCPCS: 93306 ==

== ENCOUNTER → 2019-11-05 | Outpatient (CLI) | payer OTHER | LOC: CARD 09:55 | PROVIDERS: ATTEND Family Medicine | DX: R07.9 Chest pain, unspecified (principal) | CPT/HCPCS: 93017 ==

== ENCOUNTER → 2020-02-25 | Outpatient (CLI) | payer BC, OTHER ==
[~2020-02-25] MED LIST changes: -LISI1TAB10 PO; +LISI1TAB26 PO; +METF500T19 PO; -METF500T8 PO
--- NOTE | 2020-02-25 16:18 | Diagnostic Imaging Report ---
INDICATION: Left testicular pain TECHNIQUE: Real-time grayscale sonographic imaging and color vascular evaluation of the scrotum. CORRELATION STUDY: None FINDINGS: RIGHT TESTICLE: 4.3 x 2.3 x 2.9 cm. LEFT TESTICLE: 3.4 x 2.0 x 2.8 cm. The testicles are in normal location and demonstrate homogeneous echotexture. There is vascular flow to the testicles. The epididymides appear unremarkable. IMPRESSION: 1. Unremarkable scrotal ultrasound examination. Dictated by: Dictated on workstation # [id number]
== END ==
LOC: RAD 15:13
PROVIDERS: ATTEND Urology
DX: N50.812 Left testicular pain (principal)
CPT/HCPCS: 76870